=== PATIENT | male | born 1970 | race African-American/Black ===

== ENCOUNTER 2017-04-29 10:22 | Emergency (ER) | payer BC, OTHER ==
[~2017-04-29] VITALS: Ht 170.2 cm; Wt 90.7 kg
[~2017-04-29 10:22] MED LIST: GLUCOTROL10 MG ORAL; LISINOPRIL40 MG ORAL; METFORMIN HCL1000 M1 ORAL; SIMVASTATIN20 MG ORAL
[2017-04-29 10:44] VITALS: BP 201/105
[2017-04-29] MEDS ORDERED: Lisinopril 10mg tab ORAL ONE (11:15)
[2017-04-29] MEDS ORDERED: Lidocaine 1% MPF 10mg/ml 5ml INJ ONE (11:45)
[2017-04-29 12:34] VITALS: BP 183/95
[2017-04-29] MEDS ORDERED: Tetanus/Diptheria/Pertussis Vaccine 0.5ml Syr IM ONE (12:45)
--- NOTE | 2017-04-29 12:51 | Emergency Room Report ---
History of Present Illness General Chief Complaint: Laceration Source: Patient Present Illness HPI Patient states that he lacerated his thumb on a sharp edge on his truck. He has no other injuries or complaints. Allergies: Coded Allergies: No Known Allergies (Unverified , 11/14/13) Patient History Past Medical History: see triage record, DM, HTN Social History: Denies: alcohol use, drug use, smoking Reviewed Nursing Documentation: PMH: Agreed, PSxH: Agreed Nursing Documentation-PMH Past Medical History: No History, Except For Hx Cardiac Problems: Yes Hx Hypertension: Yes Hx Diabetes: Yes Review of Systems All Other Systems: negative except mentioned in HPI Physical Exam Vital Signs Date Time Temp Pulse Resp B/P Pulse Ox O2 Delivery O2 Flow Rate FiO2 04/29/17 10:28 99.0 77 14 168/87 99 Room Air Sp02 EP Interpretation: reviewed, normal General Appearance: no apparent distress, alert, GCS 15, non-toxic Head: normocephalic, atraumatic Eyes: bilateral eye PERRL, bilateral eye normal inspection ENT: hearing grossly normal, normal pharynx, no angioedema, normal voice Respiratory: no respiratory distress, no retraction, no accessory muscle use, speaking full sentences Rectal: deferred Musculoskeletal: back normal, gait/station normal, normal range of motion, other - R. Thumb: 2cm superficial laceration Neurologic: alert, oriented x3, responsive, motor strength/tone normal, sensory intact, speech normal Psychiatric: judgement/insight normal, memory normal, mood/affect normal, no suicidal/homicidal ideation Skin: normal color, no rash, warm/dry, well hydrated, other - See MSK exam Procedures Laceration/Wound Repair Laceration/Wound Repair : Consent: Verbal Wound Location: other - R. thumb Wound's Depth, Shape: superficial Wound Length (cm): 2 Wound Explored: clean Irrigated w/ Saline (ccs): 2000 Anesthesia: 1% Lidocaine Volume Anesthetic (ccs): 5 Wound Debrided: minimal Wound Repaired With: sutures Suture Size/Type: 5:0, nylon Number of Sutures: 7 Layer Closure?: No Sterile Dressing Applied?: Yes Splint Applied?: No Sling Applied?: No Patient Tolerated: Well Complications: None Medical Decision Making Diagnostic Impression: Primary Impression: Laceration ER Course This patient is a superficial laceration of the right thumb. Tetanus was updated. Wound was closed without competition or incident. See my procedure note. The patient will be placed on course of oral antibiotics given the location of the laceration. The patient is given wound care instructions and followup instructions. Last Vital Signs Date Time Temp Pulse Resp B/P Pulse Ox O2 Delivery O2 Flow Rate FiO2 04/29/17 12:34 98.2 76 16 183/95 97 Room Air Status: improved Disposition: HOME, SELF-CARE Condition: Improved Referrals: NOT CHOSEN IPA/MD,REFERRING (PCP) Patient Instructions: Laceration Care, Adult LEOPOLDO THOMPSON D.O. Apr 29, 2017 12:51
[2017-04-29] MEDS ORDERED: DOXYCYCLINE MO100 MG ORAL (12:52)
[2017-04-29] MEDS ORDERED: Bacitracin Oint UD TOPIC ONE (13:00)
[2017-04-29] MEDS ORDERED: Polysporin Oint 30gm TOPIC ONE (13:00)
[2017-04-29 13:10] VITALS: BP 167/90
== END 2017-04-29 13:10 | disposition home or self-care (01) ==
LOC: EMR 10:42
DX: S61.011A Laceration without foreign body of right thumb without damage to nail, initial encounter (principal); Z23 Encounter for immunization; E11.9 Type 2 diabetes mellitus without complications; I10 Essential (primary) hypertension; W26.8XXA Contact with other sharp object(s), not elsewhere classified, initial encounter; Y92.812 Truck as the place of occurrence of the external cause
CPT/HCPCS: 90471; 90715; 96372

== ENCOUNTER → 2017-05-21 | Outpatient (CLI) | payer BC ==
[~2017-05-21] MED LIST changes: +DOXYCYCLINE MO100 MG ORAL
== END | disposition home or self-care (01) ==
LOC: RAD 07:40
DX: M54.5 Low back pain (principal); M25.551 Pain in right hip
CPT/HCPCS: 72110

== ENCOUNTER 2020-04-20 18:11 | Emergency (ER) | payer BC, MEDICAID ==
[~2020-04-20] VITALS: Ht 170.2 cm; Wt 89.8 kg
[2020-04-20 18:37] VITALS: BP 159/87
[2020-04-20] MEDS ORDERED: Fluorescein Strips LEFT EYE ONE (19:00)
[2020-04-20] MEDS ORDERED: Tetracaine 0.5% Opth 4ml Soln LEFT EYE ONE (19:00)
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
[2020-04-20] MEDS ORDERED: POLYMYXIN B-TMP10 M1 OP (19:31)
[2020-04-20 19:43] VITALS: BP 159/87
== END 2020-04-20 19:44 | disposition home or self-care (01) ==
LOC: EMR 18:55
DX: H20.9 Unspecified iridocyclitis (principal); E11.9 Type 2 diabetes mellitus without complications; I10 Essential (primary) hypertension; I51.9 Heart disease, unspecified; W39.XXXA Discharge of firework, initial encounter; Y93.89 Activity, other specified; Y92.9 Unspecified place or not applicable
CPT/HCPCS: 99283